=== PATIENT | female | born 1995 | race Caucasian/White ===

== ENCOUNTER 2017-02-17 21:57 | Emergency (ER) | payer MEDICAID, OTHER ==
[~2017-02-17] VITALS: Ht 177.8 cm; Wt 90.5 kg
[2017-02-17 21:59] VITALS: BP 125/85
== END 2017-02-17 22:45 | disposition home or self-care (01) ==
LOC: ED 22:39
DX: L03.116 Cellulitis of left lower limb (principal)
CPT/HCPCS: 99283

== ENCOUNTER 2017-02-18 17:46 | Emergency (ER) | payer SELFPAY ==
[~2017-02-18] VITALS: Ht 180.3 cm; Wt 91.3 kg
[2017-02-18] MEDS ORDERED: EPINEPHRINE 1 MG/ML, 1ML ONE (18:21)
[2017-02-18] MEDS ORDERED: DIPHENHYDRAMINE 50 MG/ML, 1ML ONE (18:21)
[2017-02-18] MEDS ORDERED: FAMOTIDINE 20 MG/2 ML ONE (18:22)
[2017-02-18] MEDS ORDERED: SODIUM CHLORIDE FLUSH 10ML SYR IVF ONE (18:30)
[2017-02-18] MEDS ORDERED: EPINEPHRINE 1 MG/ML, 1ML SQ ONE (18:30)
[2017-02-18] MEDS ORDERED: FAMOTIDINE 20 MG/2 ML IVPush ONE (18:30)
[2017-02-18] MEDS ORDERED: SODIUM CHLORIDE 0.9% 1,000ML IVBOLUS ONE (18:30)
[2017-02-18] MEDS ORDERED: DIPHENHYDRAMINE 50 MG/ML, 1ML IVPush ONE (18:30)
[2017-02-18 18:40] LABS: BLOOD UREA NITROGEN 14 mg/dL (7-18)
[2017-02-18 19:40] VITALS: BP 110/51
== END 2017-02-18 19:42 | disposition home or self-care (01) ==
LOC: ED 18:42
DX: L50.9 Urticaria, unspecified (principal); T36.1X5A Adverse effect of cephalosporins and other beta-lactam antibiotics, initial encounter; L03.116 Cellulitis of left lower limb; L03.115 Cellulitis of right lower limb; F17.210 Nicotine dependence, cigarettes, uncomplicated; Y92.89 Other specified places as the place of occurrence of the external cause
CPT/HCPCS: 36415; 80048; 82040; 84703; 85025; 96361; 96372; 96374; 96375; 99284; J0171; J1200; J7030; J7512; S0028